=== PATIENT | male | born 1945 | race Caucasian/White ===

== ENCOUNTER 2019-12-09 10:40 | Emergency (ER) | payer MEDICARE, SELFPAY ==
[2019-12-09 10:52] VITALS: BP 171/76; PULSE 72; RESP 18; TEMP 36.5; O2SAT 97
--- NOTE | 2019-12-09 10:59 | ED.GENADULT ---
HPI - General Adult General Chief complaint: Chest Pain Stated complaint: Chest Pain Time Seen by Provider: 12/09/19 11:00 Source: patient and RN notes reviewed Mode of arrival: ambulatory Limitations: no limitations History of Present Illness HPI narrative: There is a 74 years old male presents to the office for an evaluation of right sided chest pain for a couple week. Pain is worse for the last couple days after he began coughing. Pain is also worse when he moved his right arm or exerted himself. He also reports feeling winded which prompted him to stay at home instead of going to gym. Pain last a few second. He took one dose cough/cold medicine for his cough. He does not smoke. Admits to history of LAD stent in 2003. He is diabetic. Related Data Home Medications Medication Instructions Recorded Confirmed atorvastatin 40 mg DAILY 12/09/19 12/09/19 glimepiride 4 mg BID 12/09/19 12/09/19 valsartan-hydrochlorothiazide 1 tablet DAILY 12/09/19 12/09/19 Allergies Allergy/AdvReac Type Severity Reaction Status Date / Time No Known Allergies Allergy Verified 12/09/19 10:47 Review of Systems Review of Systems: Narrative: CONSTITUTIONAL: Denies fever. Reports chills and sweat last night ENT: Denies congestion/sore throat CARDIOVASCULAR: Denies palpitation, edema. RESPIRATORY: Reports cough with shortness of breathe at times GASTROINTESTINAL: Denies abdominal pain, nausea, vomiting, diarrhea. SKIN: Denies rash MUSCULOSKELETAL: Denies acute back pain NEUROLOGIC: Denies lightheaded PMFSH Past Medical History Medical History (Updated 12/09/19 @ 11:23 by SETH Hall) Diabetes mellitus, type II HLD (hyperlipidemia) HTN (hypertension) Surgical History Surgical History (Updated 12/09/19 @ 10:59 by SETH Hall) H/O heart artery stent Social History Social History Alcohol intake: current Gender identity (if verbalized by the patient): Male Comments At time of signature, I agree with nursing past medical, surgical, social and family history. There is no relevant family history pertinent to the presenting complaint. Exam Narrative: Exam Narrative: GENERAL: This is a well-nourished, well-developed patient, in no apparent distress. EYES: Sclera clear/white. Vision is grossly intact. EARS: External ears normal, auditory canals clear and without drainage, TMs normal without perforation. Hearing grossly intact. NOSE: External nose normal with no obvious nasal discharge, nares without redness, no rhinorrhea. THROAT: Mucous membranes moist, posterior pharynx clear. NECK: Neck supple, non-tender without lymphadenopathy, masses or thyromegaly. CARDIOVASCULAR: Regular rate and rhythm without murmurs, gallops, or rubs. RESPIRATORY: Clear to auscultation. Breath sounds equal bilaterally. No wheezes, rales, or rhonchi. GASTROINTESTINAL: obese, abdomen soft, non-tender, nondistended. Bowel sounds are active. No hepato-splenomegaly, or palpable masses. No guarding. SKIN: warm, intact with no suspicious lesions or rash, good texture and turgor. NEURO: awake, alert, and oriented to person, place and time. There were no obvious focal neurologic abnormalities. Steady gait EXTREMITIES: Normal range of motion. No edema. Mikie Coma Scale Eye Opening: Spontaneous 4 Mikie Coma Scale Motor: Obeys Commands 6 Mikie Coma Scale Verbal: Oriented 5 Course Vital Signs Vital signs: Vital Signs Temperature 97.7 F 12/09/19 10:52 Pulse Rate 72 12/09/19 10:52 Respiratory Rate 18 12/09/19 10:52 Blood Pressure 171/76 H 12/09/19 10:52 Pulse Oximetry 97 12/09/19 10:52 Temperature 97.7 F 12/09/19 10:52 Pulse Rate 72 12/09/19 10:52 Respiratory Rate 18 12/09/19 10:52 Blood Pressure 171/76 H 12/09/19 10:52 Pulse Oximetry 97 12/09/19 10:52 Transfer Transfered to: [facility] Transportation: Other (private car) Transfer rationale
--- NOTE | 2019-12-09 11:03 | ECG_ITS ---
Measurements Intervals [place] Rate: 67 P: 52 FL: 198 QRS: -23 QRSD: 122 T: 82 QT: 411 QTc: 434 Interpretive Statements SINUS RHYTHM INFERIOR INFARCT, AGE INDETERMINATE BORDERLINE T WAVE ABNORMALITY- LATERAL LEADS ABNORMAL ECG Electronically Signed On 12-09-2019 13:01:59 COMMUNITY LIAISON OFFICER by Juan Daniel D.O.
== END 2019-12-09 11:30 | disposition short-term general hospital (02) ==
PROVIDERS: Emergency Provider Nurse Practitioner
DX: R07.89 Other chest pain (principal); I25.10 Atherosclerotic heart disease of native coronary artery without angina pectoris; Z95.5 Presence of coronary angioplasty implant and graft; E11.9 Type 2 diabetes mellitus without complications; E78.5 Hyperlipidemia, unspecified; I10 Essential (primary) hypertension
CPT/HCPCS: 93005; 99213; G0463

== ENCOUNTER 2019-12-09 11:47 | Observation (INO) | payer MEDICARE, SELFPAY ==
--- NOTE | ~2019-12-09 | XR_ITS ---
EXAMINATION: XR chest 2V DATE: 12/09/2019 12:21 INDICATION: Right chest pain. TECHNIQUE: Frontal and lateral views of the chest were obtained. COMPARISON: Chest 2 views 04/01/2010 FINDINGS: There is mild atelectasis in the lower lung zones. No pleural effusion or pneumothorax. The heart size is normal. There are prominent paracardial fat pads. IMPRESSION: 1. Mild atelectasis in the lower lung zones. Reviewed, dictated and finalized at location A. DOG VENDER
--- NOTE | 2019-12-09 11:57 | ECG_ITS ---
Measurements Intervals [place] Rate: 66 P: 54 MI: 195 QRS: -25 QRSD: 125 T: 66 QT: 400 QTc: 420 Interpretive Statements SINUS RHYTHM INTRAVENTRICULAR CONDUCTION DELAY INFERIOR INFARCT, AGE INDETERMINATE BORDERLINE T WAVE ABNORMALITY- LATERAL LEADS ABNORMAL ECG Electronically Signed On 12-09-2019 13:56:52 COUNTER CONTROL OPERATOR by Juan Daniel D.O.
--- NOTE | 2019-12-09 11:57 | ED.CHESTPAIN ---
HPI - Chest Pain General Chief Complaint: Chest Pain Stated Complaint: CP Time Seen by Provider: 12/09/19 11:52 Source: patient and RN notes reviewed Mode of arrival: ambulatory Limitations: no limitations History of Present Illness HPI narrative: Pt is a 74 y/o male who presents to the ED with c/o intermittent rt sided chest pain starting roughly 2 weeks ago. According to the nurse, the pt recently began working out several months ago. He denies any recent falls or injuries. Pt notes that his pain is aggravated with movement of his torso, and states that his pain is alleviated with rest. He notes that his pain is currently resolved while laying in the ED bed. Pt denies any fever, chills, or other symptoms. . Patient states he has a history of cardiac stent. States has not seen a house player in several years since his house player who was in [place] . complaint: chest pain Onset (ago): week(s) (2) Timing of current episode: episodic Pain location: right chest Relieving factors: rest Exacerbating factors: movement Associated symptoms: other (none) Related Data Home Medications Medication Instructions Recorded Confirmed atorvastatin 40 mg DAILY 12/09/19 12/09/19 glimepiride 4 mg BID 12/09/19 12/09/19 valsartan-hydrochlorothiazide 1 tablet DAILY 12/09/19 12/09/19 Allergies Allergy/AdvReac Type Severity Reaction Status Date / Time No Known Allergies Allergy Verified 12/09/19 10:47 Review of Systems Review of Systems: All systems reviewed & are unremarkable except as noted in HPI and below Constitutional: Constitutional: Denies chills and Denies fever(s) Cardiovascular: Cardiovascular: Reports chest pain (rt sided chest pain) [facility] Past Medical History Medical History (Updated 12/09/19 @ 13:36 by Zeus Brady DO) Diabetes mellitus, type II HLD (hyperlipidemia) HTN (hypertension) Sinusitis Surgical History Surgical History H/O heart artery stent Hx of cardiac catheterization Social History Social History Alcohol intake: current Gender identity (if verbalized by the patient): Male Exam Narrative: Exam Narrative: APPEARANCE: No acute distress, nontoxic, resting in bed EYES: EOMI HEENT: Normocephalic, atraumatic, OMM RESPIRATORY: No respiratory distress Clear to auscultation bilaterally with no rhonchi wheezing or rales. CARDIOVASCULAR: Regular rate and rhythm without murmurs rubs or gallops. ABDOMINAL: Soft, nontender, nondistended, no rebound or guarding MUSCULOSKELETAl: Moves all extremities. No clubbing, cyanosis or edema. NEURO: Awake and alert. Following commands, speech normal, no focal deficits SKIN:: Warm, dry. No rashes lesions or abrasions PSYCHIATRIC: Normal affect/mood, Course Course Emergency Course: Discussed with COLOR SHOP HELPER and Michael for Dr. Bellamy presentation work-up he agrees with admission of the chest pain center Discussed with patient and family results of workup and diagnosis. Discussed need for admission. Patient and family understand and agree to current treatment plan Vital Signs Vital signs: Vital Signs Temperature 98.1 F 12/09/19 12:22 Pulse Rate 70 12/09/19 12:22 Respiratory Rate 20 12/09/19 12:22 Blood Pressure 130/81 12/09/19 12:22 Pulse Oximetry 99 12/09/19 12:22 Temperature 98.1 F 12/09/19 12:22 Pulse Rate 70 12/09/19 12:22 Respiratory Rate 20 12/09/19 12:22 Blood Pressure 130/81 12/09/19 12:22 Pulse Oximetry 99 12/09/19 12:24 MDM - Chest Pain Lab Data Result diagrams: 12/09/19 12:07 12/09/19 12:07 Labs: Lab Results 12/09/19 12/09/19 12/09/19 Range/Units 12:07 12:07 12:07 WBC 7.2 (4.5-10.0) K/mm3 RBC 4.58 L (4.6-6.20) M/mm3 Hgb 14.2 (14.0-18.0) g/dL Hct 41.8 L (42.0-52.0) % MCV 91.3 (80-100) fl MCH 31.0 (26-34) pg MCHC 34.0 (32-36)
[2019-12-09 12:13] LABS: Basophils Absolute Auto 0.1 K/mm3 (0.0-0.1); Basophils Percent Auto 0.7 % (0.2-1.2); Eosinophils Absolute Auto 0.2 K/mm3 (0-0.3); Eosinophils Percent Auto 3.4 % (0-4.4); Hematocrit 41.8 % (42.0-52.0); Hemoglobin 14.2 g/dL (14.0-18.0); Immature Granulocyte Absolute 0.02 K/mm3 (0.00-0.031); Immature Granulocyte Percent A 0.3 % (0-0.5); Lymphocytes Absolute Auto 1.37 K/mm3 (0.9-3.2); Lymphocytes Percent Auto 19.1 % (18.3-44.2); Mean Corpuscular Volume 91.3 fl (80-100); Monocytes Percent Auto 13.4 % (2.6-8.5); Neutrophils Absolute Auto 4.5 K/mm3 (1.3-6.7); Neutrophils Percent Auto 63.1 % (45.5-73.1); Platelet Count Result 175 k/mm3 (150-375); Red Blood Count 4.58 M/mm3 (4.6-6.20); Red Cell Distribution Width 11.9 % (11.5-14.5); White Blood Count 7.2 K/mm3 (4.5-10.0)
[2019-12-09 12:22] VITALS: BP 130/81; PULSE 70; RESP 20; TEMP 36.7; O2SAT 99
[2019-12-09 12:24] VITALS: O2SAT 99
[2019-12-09 12:24] LABS: Lactic Acid Reflex 1.3 mmol/L (0.7-2.1)
[2019-12-09 12:25] LABS: INR 0.8; Prothrombin Time 11.2 Seconds (11.1-14.7)
[2019-12-09 12:26] LABS: Alanine Aminotransferase 20 U/L (4-50); Albumin Level 4.2 g/dL (3.5-5.1); Alkaline Phosphatase 60 U/L (38-126); Aspartate Amino Transferase 18 U/L (17-59); Bilirubin,Total 0.5 mg/dL (0.2-1.3); Blood Urea Nitrogen 18 mg/dL (9-20); Calcium 8.7 mg/dL (8.4-10.2); Carbon Dioxide 28 mmol/L (22-30); Chloride 99 mmol/L (98-107); Estimated CRCL calculation 76 ml/min; Estimated Glomerular Filt Rate > 60; Glucose 246 mg/dL (75-110); Potassium 3.7 mmol/L (3.4-5.0); Sodium 139 mmol/L (137-145)
[2019-12-09 12:37] LABS: Troponin I < 0.012 ng/mL (0.000-0.034)
[2019-12-09 13:37] VITALS: BP 185/79; PULSE 67; RESP 20; O2SAT 97
[2019-12-09 14:55] VITALS: BP 187/88; PULSE 66; RESP 16; O2SAT 95; BMI 33.9
--- NOTE | 2019-12-09 15:41 | PM.IMHP ---
H&P: HPI History of Present Illness Chief complaint: chest pain Narrative: date of service: 12/09/2019 Mr. Dong is a very pleasant 74-year-old man with a known history of coronary artery disease, previous PCI who was admitted to our service at the chest Pain Center from the emergency room a short time ago. The patient states that he was in his usual state of fairly good health when for the last week to 10 days he has been having episodes of right-sided chest discomfort that seems to come and go without physical exertion triggering it. He has noticed that twisting his torso from side to side will tend to trigger this pain. He also states that he felt a little bit feverish she was not really having a productive cough but he has had pneumonia in the past, he thought he probably had pneumonia and for that reason came to the emergency room to be evaluated. In the emergency room his cardiac evaluation consisted of an ECG that demonstrates sinus rhythm with no acute ST segment abnormalities. He does have inferior Q-waves suggestive of previous infarction of that segment. His troponin levels in the emergency room were normal. He was admitted to our service as a chest Pain Center patient. The patient has a known history of coronary artery disease stating that in the remote past he was seen by a corporate physical security supervisor in [facility] initially at in [place] where he underwent angiography and stenting of his LAD. He states that about a year after his PCI he was brought back to the slab tripper to reinvestigate the coronary stent was treated with a drug-eluting stent to the same segment as there was some loss of lumen and the initial stent was a bare metal device. Since that procedure he has had no other coronary interventions or hospitalizations. He does not notice any chest pain shortness of breath with it aerobic activity such as walking distances or climbing stairs. He sees Dr. Eric Oquendo at [place] for his primary care needs. His previous corporate physical security supervisor in [facility] has . He has not seen a corporate physical security supervisor since then which is something like 5or 6 years ago. He otherwise denies any symptoms in the way of a cardiac nature he specifically denies any orthopnea PND lower extremity edema palpitations or syncope. His principal health problems include hypertension dyslipidemia and non insulin-dependent diabetes. He states his diabetes is not well controlled because he is not compliant with his diet and or medications. 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 Review of Systems Constitutional: Constitutional: Reports no additional constitutional complaints Eyes: Eyes: Reports no additional eye complaints ENT: Reports system reviewed and no additional complaints, except as documented Cardiovascular: Cardiovascular: Reports as per HPI Comments: patient has exertional lower extremity calf discomfort typical of intermittent claudication which is chronic Respiratory: Respiratory: Reports no additional respiratory complaints Gastrointestinal: Gastrointestinal: Reports no additional gastrointestinal complaints Musculoskeletal: Musculoskeletal: Reports no additional musculoskeletal complaints and Reports as per HPI [facility] Past Medical History Medical History (Updated 12/09/19 @ 13:36 by Zeus Brady DO) Diabetes mellitus, type II HLD (hyperlipidemia) HTN (hypertension) Sinusitis Surgical History Surgical History H/O heart artery stent Hx of cardiac catheterization Social History Social History Smoking status: Never smoker Alcohol intake: current Gender identity (if verbalized by the patient): Male Meds Home Medications and Allergies Home Medications Medication Instructions Recorded Confirmed Type amlodipine 10 mg PO DAILY 12/09/19 12/09/19 History aspirin 81 mg PO DAILY 12/09/19 12/09/19
[2019-12-09 15:43] LABS: Cholesterol 120 mg/dL (0-200); HDL Direct 31 mg/dL; Triglycerides 176 mg/dL (<150)
[2019-12-09 15:54] LABS: LDL Cholesterol Direct 71 mg/dL
[2019-12-09 15:55] LABS: Troponin I 0.012 ng/mL (0.000-0.034)
--- NOTE | 2019-12-09 16:10 | ECG_ITS ---
Measurements Intervals [place] Rate: 71 P: 51 SC: 206 QRS: -28 QRSD: 114 T: 34 QT: 402 QTc: 437 Interpretive Statements SINUS RHYTHM INFERIOR INFARCT, AGE INDETERMINATE BORDERLINE T WAVE ABNORMALITY- LATERAL LEADS BASELINE WANDER- V6 ABNORMAL ECG Electronically Signed On 12-09-2019 15:44:47 THROAT CUTTER by Juan Daniel D.O.
[2019-12-09 18:48] LABS: Troponin I 0.016 ng/mL (0.000-0.034)
--- NOTE | 2019-12-09 19:26 | PC.NURSE ---
12/09/19:1900:PATIENT DRESSED SELF WITHOUT ASSISTANCE.
--- NOTE | 2019-12-09 19:27 | PC.NURSE ---
12/09/19:1907:PATIENT GIVEN DETAILED DISCHARGE INSTRUCTIONS. PATIENT VERBALIZED AN UNDERSTANDING OF THESE INSTRUCTIONS.
--- NOTE | 2019-12-09 19:32 | PC.NURSE ---
12/09/19:1910:PATIENT DISCHARGED TO HOME. PATIENT AMBULATED WITH NO DISTRESS. DISCHARGE PAPERS WITH PATIENT.
--- NOTE | 2019-12-19 06:41 | P.DS_ITS ---
DS: Diagnosis Admitting Diagnosis Admitting Diagnosis: Chest pain, unspecified DS: Summary Hospital Course Reason for hospitalization: Chest pain Hospital Course: This 74-year-old patient with a history of coronary artery disease who receives his care elsewhere. He has a history of previous PCI to the LAD. He presented to the emergency room with a 10 day history of intermittent chest pain felt to be very atypical of myocardial ischemia. Patient's electrocardiogram was benign. His biomarkers in the chest Pain Center were negative x3 sets. Patient was allowed to be discharged after rule out of acute coronary syndrome and follow-up was recommended with his PCP who is in [place] at [facility]. Status at Discharge Functional status at discharge: independent ambulation Overall status at discharge: patient is back to baseline Time Spent with Patient Time attestation: Total time spent providing and/or coordinating discharge services: Time spent: Less than 30 minutes Exam Const: General: comfortable and no acute distress HENMT: Mouth: Yes moist mucous membranes Eyes: Sclera: sclerae normal Pupils: Equal, round and reactive pupils present Neck: Neck: supple and no JVD Thyroid: thyroid normal Resp: Effort & Inspection: normal respiratory effort Auscultation: clear to auscultation bilaterally Cardio: Rate: regular rate Rhythm: regular rhythm Other: No murmur no gallop no rub GI: GI Palp: Yes Soft to palpation Auscultation: normal bowel sounds Skin: General skin exam: normal color Extrem: General: normal to inspection Discharge Plan Discharge Consulting providers: Juan Daniel ; Nilay Clayton V. Discharging Clinician: David Bellamy Anticipated Discharge Date/Time: 12/09/19 18:57 Patient Disposition: Home, Self-Care Activity: as tolerated Diet: heart healthy Discharge Instructions: Follow up with Dr. Oquendo. Patient Instructions: Chest Pain (DC) Stand Alone Forms: General Discharge Information Follow-up/Referrals: Azra,Eric Cronin MD [Primary Care Provider] - Discharge Medications: Continued atorvastatin 40 mg tablet 40 mg HS RF: 0 glimepiride 4 mg tablet 4 mg BID RF: 0 valsartan-hydrochlorothiazide 320-12.5 mg tablet 1 tablet DAILY RF: 0 amlodipine 10 mg Tablet 10 mg PO DAILY RF: 0 metformin 1,000 mg Tablet 1,000 mg PO BID RF: 0 aspirin 81 mg Tablet,Chewable 81 mg PO DAILY RF: 0 Lantus Solostar U-100 Insulin 100 unit/mL (3 mL) Insulin Pen 40 unit SUBCUT DAILY RF: 0 Victoza 3-Damon 0.6 mg/0.1 mL (18 mg/3 mL) Pen Injector 1.8 mg SUBCUT DAILY RF: 0 Invokana 100 mg Tablet 100 mg PO DAILY RF: 0 Date of admission: 12/09/19 13:10 Primary Care Provider: AzraEric Admitting Provider: David Bellamy Discharge Date/Time: 12/09/19 19:10 Attending physician on admission: David Bellamy Condition: Stable Quality If No VTE Prophylaxis Answer both mechanical and pharmacologic: Reason no mechanical VTE proph: low risk/not indicated
== END 2019-12-09 19:10 | disposition home or self-care (01) ==
LOC: ANHED 13:36 → ANHCPC 13:51
PROVIDERS: Admitting Provider Specialist; Emergency Provider Emergency Medicine; PCP Internal Medicine; Visit Provider Specialist
DX: R07.9 Chest pain, unspecified (principal); I25.10 Atherosclerotic heart disease of native coronary artery without angina pectoris; I10 Essential (primary) hypertension; E11.9 Type 2 diabetes mellitus without complications; E78.5 Hyperlipidemia, unspecified; Z91.11 Patient's noncompliance with dietary regimen; Z91.14 Patient's other noncompliance with medication regimen; Z79.4 Long term (current) use of insulin; Z79.82 Long term (current) use of aspirin; Z95.5 Presence of coronary angioplasty implant and graft
CPT/HCPCS: 36415; 71046; 80053; 80061; 83605; 84484; 85025; 85610; 85730; 93005; 99285; G0378

== ENCOUNTER 2021-06-13 11:10 | Emergency (ER) | payer MEDICARE, SELFPAY ==
[2021-06-13 11:18] VITALS: BP 183/94; PULSE 83; RESP 20; TEMP 36.7; O2SAT 97
--- NOTE | 2021-06-13 12:26 | ED.LOWEXIN ---
HPI - Extremity Injury (Lower) General Chief Complaint: Extremity Injury, Lower Stated Complaint: left leg Time Seen by Provider: 06/13/21 12:00 History of Present Illness HPI Narrative: Patient presents with wound on his left leg, Reports a history of diabetes. Reports he injured his leg approximately 1 month ago and still has not completely healed he also notes some spreading pain up his leg he was concerned so wanted to come in for evaluation. Denies any fevers numbness tingling. Denies any nausea or vomiting Related Data Home Medications Medication Instructions Recorded Confirmed Invokana 100 mg PO DAILY 12/09/19 12/09/19 Lantus Solostar U-100 Insulin 40 unit SUBCUT DAILY 12/09/19 12/09/19 Victoza 3-Damon 1.8 mg SUBCUT DAILY 12/09/19 12/09/19 amlodipine 10 mg PO DAILY 12/09/19 12/09/19 aspirin 81 mg PO DAILY 12/09/19 12/09/19 atorvastatin 40 mg HS 12/09/19 12/09/19 glimepiride 4 mg BID 12/09/19 12/09/19 metformin 1,000 mg PO BID 12/09/19 12/09/19 valsartan-hydrochlorothiazide 1 tablet DAILY 12/09/19 12/09/19 Allergies Allergy/AdvReac Type Severity Reaction Status Date / Time No Known Allergies Allergy Verified 06/13/21 11:21 Review of Systems Review of Systems: CONSTITUTIONAL: Denies fever, chills, or sweats. EYES: Denies visual changes, redness, or discharge. ENT: Denies rhinorrhea, congestion, sore throat, or otalgia. CARDIOVASCULAR: Denies chest pain, palpitations, or edema. RESPIRATORY: Denies cough or dyspnea. GASTROINTESTINAL: Denies abdominal pain, nausea, vomiting, or diarrhea. SKIN: Denies rash or itching. MUSCULOSKELETAL: Denies back pain, joint pain, or myalgia. NEUROLOGIC: Denies headache, numbness, dizziness, or weakness. PSYCHIATRIC: Denies anxiety or depression. [facility] Past Medical History Medical History Diabetes mellitus, type II HLD (hyperlipidemia) HTN (hypertension) Sinusitis Surgical History Surgical History H/O heart artery stent Hx of cardiac catheterization Social History Social History Smoking status: Never smoker Alcohol intake: current Gender identity (if verbalized by the patient): Male Exam Narrative: GENERAL: Well-appearing, well-nourished, and in no acute distress. HEAD: Normocephalic, atraumatic. EYES: PERRLA and EOMI. ENT: Nares clear, no rhinorrhea or epistaxis. Mucous membranes moist. NECK: Supple. No masses. No JVD EXTREMITIES: Normal range of motion. No edema. SKIN: Warm, dry, no rash. 1 x 1 cm superficial wound to the lateral distal aspect of the left lower leg. Minimal surrounding erythema mild tenderness palpation no focal fluctuance no purulent material drainage NEURO: No focal deficits. Alert and oriented x3. PSYCH: Normal mood and affect. Course Vital Signs Vital signs: Vital Signs Temperature 36.7 C 06/13/21 11:18 Pulse Rate 83 06/13/21 11:18 Respiratory Rate 20 06/13/21 11:18 Blood Pressure 183/94 H 06/13/21 11:18 Pulse Oximetry 97 06/13/21 11:18 Temperature 36.7 C 06/13/21 11:18 Pulse Rate 80 06/13/21 12:42 Respiratory Rate 20 06/13/21 12:42 Blood Pressure 175/88 H 06/13/21 12:42 Pulse Oximetry 99 06/13/21 12:42 MDM - Extremity Injury (Lower) MDM Narrative Medical decision making narrative: H&P as above, vss, pt looks clinically well, exam with superficial wound, additional labs/img considered, symptomatic relief available as needed, on reevaluation pt continues to looks clinically well. Suspect poor wound healing due to history of diabetes, given tenderness around the wound site history of diabetes will cover with antibiotics. Low concern for abscess, severe sepsis, severe dehydration. plan to tx/monitor as op w/ pcm f/u findings/plan discussed with pt, pt agree/comfortable with plan, return precautions given Discharge Plan Discharge
[2021-06-13 12:42] VITALS: BP 175/88; PULSE 80; RESP 20; O2SAT 99
== END 2021-06-13 12:44 | disposition home or self-care (01) ==
PROVIDERS: Emergency Provider Emergency Medicine; PCP Internal Medicine
DX: E11.622 Type 2 diabetes mellitus with other skin ulcer (principal); L98.499 Non-pressure chronic ulcer of skin of other sites with unspecified severity; I10 Essential (primary) hypertension; E78.5 Hyperlipidemia, unspecified; Z79.82 Long term (current) use of aspirin; Z79.84 Long term (current) use of oral hypoglycemic drugs
CPT/HCPCS: 99283

== ENCOUNTER 2021-12-03 12:24 | Inpatient (IN) | payer MEDICARE, SELFPAY ==
[2021-12-03] VITALS (15 sets, daily range): BP systolic 103–190; BP diastolic 43–107; PULSE 76–99; RESP 17–27; TEMP 36.2–36.5; O2SAT 96–100; BMI 33.7
--- NOTE | 2021-12-03 | ECHO_ITS ---
Patient Info Name: Law Dong Age: 76 years : 1945 Gender: Male Ht: 71 in Wt: 240 lbs BSA: 2.37 m2 Heart Rhythm: Sinus Arrhythmia Technical Quality: Fair Exam Date: 12/03/2021 4:50 PM Exam Location: [facility] Patient Status: Inpatient Admit Date: 12/03/2021 Staff Ordering Physician: David Bellamy MD Cd Manufacturing Supervisor: Kathya Iqbal RDCS Attending Provider: Nik Arguello MD Referring Physician: Josesito RINCON; Exam Type: CA echo dop color flow w con Study Info Indications - acute coronary syndrome/non ST-elevation PA Complete two-dimensional, color flow and Doppler transthoracic echocardiogram is performed. Summary 1. Complete two-dimensional, color flow and Doppler transthoracic echocardiogram is performed. 2. Suboptimal image quality, definity echo contrast was used. Normal LV size and wall thickness, mild LV systolic dysfunction with segmental wall motion abnormality. Ejection fraction 45-50%. Severely hypokinetic to akinetic apical and apical inferior segments. Diastolic dysfunction is present with elevated left atrial pressures. Mild left atrial enlargement. Mitral valve leaflets are mildly thickened with mild mitral annular calcification, no significant MR. Aortic valve is not well visualized, appears moderately calcified. [id number] aortic stenosis with a valve area of 1.5 cm2; maximum velocity 2.17 m/sec, mean gradient 9 mmHg. Unable to assess RVSP due to inadequate TR jet. Left Ventricle Left ventricular systolic function is mildly reduced, estimated at 45-50%. The left ventricular diastolic function is abnormal. E/e' 27.89 is abnormal. Right Ventricle Right ventricular chamber dimension is normal. Right ventricular systolic function is normal. Right Atria Right atrial chamber dimension is normal. Aortic Valve The aortic valve is not well visualized. There is mild to moderate aortic valve stenosis with a peak velocity of 217.28 cm/s, mean gradient of 9 mmHg, and aortic valve area of 1.51 cm2. Pulmonic Valve The pulmonic valve is not well visualized. Mitral Valve The mitral valve has thickened leaflets. There is mild mitral valve calcification. Tricuspid Valve The tricuspid valve leaflets are not well visualized. Pericardium/Pleural The pericardium appears epicardial fat pad. Aorta The aortic root size at the sinus of Valsalva is not well visualized. Left Ventricular Outflow Tract Name Value Normal LVOT 2D LVOT Diameter 2.14 cm LVOT Doppler LVOT Peak Gradient 6 mmHg LVOT Mean Gradient 2 mmHg LVOT VTI 16.62 cm LVOT VTI/AV VTI Ratio 0.42 LVOT Stroke Volume 59.93 ml LVOT CO 4.79 l/min LVOT CI 2.02 L/min/m2 Pulmonic Valve Name Value Normal RVOT Doppler
--- NOTE | ~2021-12-03 | XR_ITS ---
EXAMINATION: XR chest 2V DATE: 12/03/2021 13:05 INDICATION: Chest pain. TECHNIQUE: Frontal and lateral views of the chest were obtained. COMPARISON: Chest 2 views 12/09/2019 FINDINGS: There is mild atelectasis in the lower lung zones. No pleural effusion or pneumothorax. The heart size is normal. IMPRESSION: 1. Mild atelectasis in the lower lung zones. Reviewed, dictated and finalized at location E. ETING COORDINATOR
--- NOTE | 2021-12-03 12:38 | ECG_ITS ---
Measurements Intervals [place] Rate: 104 P: 79 GA: 200 QRS: -57 QRSD: 125 T: 84 QT: 352 QTc: 464 Interpretive Statements SINUS TACHYCARDIA LEFT AXIS DEVIATION BORDERLINE AV CONDUCTION DELAY INCOMPLETE RIGHT BUNDLE BRANCH BLOCK POOR R WAVE PROGRESSION, ANTERIOR LEADS INFERIOR INFARCT, AGE INDETERMINATE ST-T WAVE ABNORMALITY IN HIGH LATERAL LEADS- CONSIDER ISCHEMIA ABNORMAL ECG Electronically Signed On 12-03-2021 12:56:46 ANALYST MARKET INTELLIGENCE by Juan Daniel D.O.
--- NOTE | 2021-12-03 12:52 | ED.CHESTPAIN ---
HPI - Chest Pain General Chief Complaint: Chest Pain Stated Complaint: chest pain Time Seen by Provider: 12/03/21 12:27 Source: patient Mode of arrival: ambulatory Limitations: no limitations History of Present Illness HPI narrative: Patient is a 76-year-old male complain of chest pain, midsternal, described as pressure, radiating to jaw, 5 out of 10, intermittent started approximately 1 week ago. Patient denies any shortness of breath, abdominal pain, nausea, vomiting, diaphoresis, fever or chills. Patient has a history of coronary artery disease with stent placement in the past. Related Data Home Medications Medication Instructions Recorded Confirmed Invokana 100 mg PO DAILY 12/09/19 12/09/19 Lantus Solostar U-100 Insulin 40 unit SUBCUT DAILY 12/09/19 12/09/19 Victoza 3-Damon 1.8 mg SUBCUT DAILY 12/09/19 12/09/19 amlodipine 10 mg PO DAILY 12/09/19 12/09/19 aspirin 81 mg PO DAILY 12/09/19 12/09/19 atorvastatin 40 mg HS 12/09/19 12/09/19 glimepiride 4 mg BID 12/09/19 12/09/19 metformin 1,000 mg PO BID 12/09/19 12/09/19 valsartan-hydrochlorothiazide 1 tablet DAILY 12/09/19 12/09/19 Allergies Allergy/AdvReac Type Severity Reaction Status Date / Time No Known Allergies Allergy Verified 06/13/21 11:21 Review of Systems Review of Systems: All systems reviewed & are unremarkable except as noted in HPI and below Constitutional: Constitutional: Denies body ache(s), Denies chills, Denies excessive sweating, Denies fatigue, Denies fever(s), Denies headache(s), Denies lethargy, Denies malaise, Denies weakness and Denies weight loss Eyes: Eyes: Denies blurry vision, Denies change in vision and Denies loss of vision ENT: Denies dizziness, Denies ear discharge, Denies headache(s), Denies lip swelling, Denies epistaxis, Denies nasal congestion, Denies neck pain, Denies throat swelling and Denies tongue swelling Cardiovascular: Cardiovascular: Denies diaphoresis, Denies rapid heart rate, Denies edema, Denies irregular heart rhythm, Denies lightheadedness, Denies palpitations, Denies dyspnea and Denies dyspnea on exertion Respiratory: Respiratory: Denies chest congestion, Denies cough, Denies hemoptysis, Denies dyspnea and Denies dyspnea on exertion Gastrointestinal: Gastrointestinal: Denies abdominal pain, Denies melena, Denies hematochezia, Denies diarrhea, Denies nausea, Denies vomiting and Denies hematemesis Musculoskeletal: Musculoskeletal: Denies abnormal gait, Denies deformity, Denies joint swelling, Denies limited range of motion, Denies neck pain and Denies numbness Neurologic: Denies Abnormal speech present, Denies abnormal gait, Denies confusion, Denies dizziness, Denies headache(s), Denies focal weakness, Denies loss of vision, Denies numbness, Denies Other visual disturbances, Denies Sensory deficit (Neuro) and Denies weakness Psychiatric: Psychiatric: Denies confusion, Denies depression, Denies auditory hallucinations, Denies homicidal ideation and Denies suicidal ideation Endocrine: Endocrine: Denies cold intolerance, Denies excessive sweating, Denies fatigue, Denies heat intolerance and Denies palpitations Hematologic/Lymphatic: Hematologic/Lymphatic: Denies easy bleeding and Denies easy bruising Allergic/Immunologic: Allergic/Immunologic: Denies lip swelling, Denies throat swelling and Denies tongue swelling PMFSH Past Medical History Medical History Diabetes mellitus, type II HLD (hyperlipidemia) HTN (hypertension) Sinusitis Surgical History Surgical History H/O heart artery stent Hx of cardiac catheterization Social History Social History Smoking status: Never smoker Alcohol intake: current Gender identity (if verbalized by the patient): Male Exam Const: General: cooperative, healthy appearing, comfortable, no acute distress, well devel
[2021-12-03 13:05] LABS: Basophils Absolute Auto 0.1 K/mm3 (0.0-0.1); Basophils Percent Auto 0.6 % (0.2-1.2); Eosinophils Absolute Auto 0.1 K/mm3 (0-0.3); Eosinophils Percent Auto 0.9 % (0-4.4); Hematocrit 36.2 % (42.0-52.0); Immature Granulocyte Absolute 0.04 K/mm3 (0.00-0.031); Immature Granulocyte Percent A 0.4 % (0-0.5); Lymphocytes Absolute Auto 1.41 K/mm3 (0.9-3.2); Lymphocytes Percent Auto 14.2 % (18.3-44.2); Mean Corpuscular HGB Conc 33.1 g/dl (32-36); Mean Corpuscular Hemoglobin 32.6 pg (26-34); Mean Corpuscular Volume 98.4 fl (80-100); Mean Platelet Volume 10.1 fl (7.4-10.4); Monocytes Absolute Auto 0.6 K/mm3 (0.1-0.6); Monocytes Percent Auto 6.3 % (2.6-8.5); Neutrophils Absolute Auto 7.7 K/mm3 (1.3-6.7); Neutrophils Percent Auto 77.6 % (45.5-73.1); Platelet Count Result 211 k/mm3 (150-375); Red Blood Count 3.68 M/mm3 (4.6-6.20); Red Cell Distribution Width 14.6 % (11.5-14.5); White Blood Count 9.9 K/mm3 (4.5-10.0)
[2021-12-03 13:17] LABS: INR 0.9; Partial Thromboplastin Time 23.6 SECONDS (22.3-36.8); Prothrombin Time 12.2 Seconds (11.1-14.7)
[2021-12-03 13:45] LABS: Alanine Aminotransferase 28 U/L (4-50); Albumin Level 4.1 g/dL (3.5-5.1); Alkaline Phosphatase 67 U/L (38-126); Anion Gap 9 mmol/L (8-16); Aspartate Amino Transferase 41 U/L (17-59); Bilirubin,Total 0.5 mg/dL (0.2-1.3); Blood Urea Nitrogen 23 mg/dL (9-20); Calcium 8.9 mg/dL (8.4-10.2); Carbon Dioxide 26 mmol/L (22-30); Chloride 101 mmol/L (98-107); Estimated CRCL calculation 45 ml/min; Estimated Glomerular Filt Rate 42; Glucose 136 mg/dL (65-110); Lipase 235 U/L (23-300); Potassium 4.1 mmol/L (3.4-5.0); Sodium 136 mmol/L (137-145)
[2021-12-03] MEDS: ASPIRIN 81 MG CHEWABLE TABLET 324 MG PO (14:05)
[2021-12-03] MEDS: HEPARIN SODIUM 5,000 UNITS/ML VIAL 4000 UNITS IV PUSH ×2 (14:27→23:51)
[2021-12-03] MEDS: HEPARIN SOD/D5W 100 UNITS/ML 25,000 UNITS/250 ML BAG 10 UNITS IV CONT ×2 (14:33→17:05)
--- NOTE | 2021-12-03 14:39 | PC.NURSE ---
Dr Bellamy at bedside to jordan
--- NOTE | 2021-12-03 14:53 | PM.CNCAR ---
Assessment and Plan Additional Plan this is a 76-year-old man known to have coronary disease. Previous PCI to his LAD on 2 occasions many years ago. He describes a bare metal stent followed by a drug-eluting stent. He has clinically been doing well and is followed elsewhere. He now presents with both exertional and postprandial chest pain for about a week to 10 days. Appears to be fairly comfortable at this time hip. His ECG however does demonstrate some widening of the QRS and some subtle ST-T changes in the precordial leads compared to previous tracings. More concerningly is his troponin level is 3.9. The diagnosis obviously is non ST segment elevation [place]/ACS. He will be brought at this time for angiography and further recommendations will be pending that exam. David Bellamy MD [facility] History of Present Illness History of Present Illness Consult date/time: 12/03/21 14:53 Consult reason: chest pain Reason For Visit: chest pain Narrative: this is a 76-year-old man I am seeing in the emergency room at the request of the ED staff because of chest pain and troponin levels that are compatible with non ST elevation [place]. the patient is known to have coronary artery disease and follows with physicians in [place]. I saw this patient 2020 when he was here with a history of atypical chest pain but otherwise have not followed him. He has a history of coronary artery disease dating back for many years when a physician in [facility] at [facility] in [place] performed LAD stent procedure. He states that within the year after that he had recurrent stenosis in the stented area and then had it treated again with a drug-eluting stent and since then has been doing well. In recent years he has been following with physicians at [place]. His primary care physician is Eric Oquendo. Patient states that he became symptomatic again about a week to 10 days ago with symptoms of pressure-like chest discomfort when he exerts himself but also after meals. He describes pain that starts in the center of the chest radiates into the jaw and then down the arms bilaterally. He apparently was dealing with this on his own but called his physician today that somewhat in that office told him to come to the emergency department. Because he lives in the vicinity of this hospital he came here rather than going to [place] where his physician works. He looks to be comfortable at this time in the emergency room but I was asked to see him because of these symptoms and his troponin level on presentation is 3.9. After that he was given a bolus and an infusion of heparin. He appears to be comfortable at the time of this consultation. Review of Systems Constitutional: Constitutional: Reports no additional constitutional complaints Eyes: Eyes: Reports no additional eye complaints ENT: Reports system reviewed and no additional complaints, except as documented Cardiovascular: Cardiovascular: Reports as per HPI Respiratory: Respiratory: Reports no additional respiratory complaints Gastrointestinal: Gastrointestinal: Reports no additional gastrointestinal complaints Musculoskeletal: Musculoskeletal: Reports no additional musculoskeletal complaints Integumentary/Breasts: Skin/Breast: Reports system reviewed and no additional complaints, except as docu Neurologic: Reports system reviewed and no additional complaints, except as documented Endocrine: Endocrine: Reports no additional endocrine complaints Hematologic/Lymphatic: Hematologic/Lymphatic: Reports no additional hematologic/lymphatic complaints Allergic/Immunologic: Allergic/Immunologic: Reports no additional allergic/immunologic complaints PMFSH Past Medical History Medical History Diabetes mellitus, type II HLD (hyperlipidemia) HTN (hypertension) Sinusitis Surgical History Surgical History (Reviewed 12/03/21 @ 12:53 by Glenna Pittman
--- NOTE | 2021-12-03 15:05 | PC.NURSE ---
greenhouse laborer RN at bedside to take pt to [facility].
[2021-12-03 15:39] LABS: SARS-CoV-2 RNA PCR Negative
--- NOTE | 2021-12-03 16:21 | WPDCARDPROC ---
Cardiac Cath Procedure Note Date of procedure:: 12/03/21 Performing physician:: David Bellamy MD Indication:: non ST-elevation [place] Brief clinical history:: this is a 76-year-old man with a history of coronary disease with previous stenting of the left anterior descending in the remote past. He received his care elsewhere. He was directed to the emergency room by his PCP because of a 7-10 day history of intermittent ischemic sounding chest pain. ECG in the emergency room showed some new precordial T-wave changes and troponin was 3.9. In this setting he is being brought urgently to the cardiac catheterization lab. He did receive heparin in the emergency room and is not having any significant chest pain upon arrival in the manager cardiac cath at this time. Procedure Procedure performed:: Emergency coronary angiography placement of intra-aortic balloon pump Sedation/Medication given:: fentanyl 50 mg Versed 2 mg Access site:: right femoral artery Estimated blood loss:: 50 cc Procedure note:: patient was brought to the cardiac catheterization lab in the emergent setting described above. The right femoral triangle was prepared and draped in the usual fashion. Anesthesia was provided with 1% lidocaine infiltrated locally. Using the modified Seldinger technique a 5 Ugandan vascular sheath was placed in the femoral artery after this I used a 5 Ugandan JR4 catheter to engage and inject the right coronary artery in multiple projections. This catheter was then withdrawn and a 5 Ugandan FL4 catheter was used to engage and inject the left coronary artery in multiple projections. Following this the cineangiograms were reviewed. At that time I elected to recommend placement of an intra-aortic balloon pump with systemic anticoagulation and attempt to transfer this patient for either CABG or high-risk PCI. The patient was clinically stable during the procedure. He is in the cardiac catheterization lab as I dictate this having no chest pain and is otherwise asymptomatic at this moment. Findings:: Hemodynamics: Central aortic pressure was variable during the case. The left main coronary artery is medium in caliber and is essentially patent. There is some haziness to the distal aspect of the left main but there is no significant stenosis identified. The left anterior descending is a medium caliber artery. There is visible stent material in the proximal LAD that is essentially patent. There is however a 99% ostial stenosis of the LAD. Distal to this the vessel has mild disease and BRO 2 flow down to the apex. This is clearly the culprit for the patient's presentation. The circumflex is a moderate caliber artery giving rise to the marginal branches. The does not have any high-grade lesions identified. The ostium of the circumflex in the YORUBA caudal projection appears to have about 50-60% ostial stenosis. Right coronary artery is large in caliber and dominant to the posterior circulation. The ostium of the right coronary artery has about 50-60% stenosis. The remainder of the right coronary is has mild luminal irregularities but no significant lesions. Conclusion:: 1. Coronary artery disease with critical subtotal stenosis of the LAD in the ostial segment. Stents distal to this remain patent. There is BRO 1 flow in the LAD because of the ostial subtotal stenosis. 2. Moderate stenosis at the ostium of the circumflex probably 50-60% as described above 3. mild 50-60% ostial right coronary stenosis does not appear to be flow-limiting at this time large dominant right coronary artery. 4. Left ventriculogram was not performed at this time as the patient does have a mild element of renal insufficiency and the desire to minimize contrast exposure. 5. Will attempt to transfer the patient to higher level of care /[facility] where either high-risk PCI versus CABG can be considered. David Bellamy MD [facility]
--- NOTE | 2021-12-03 16:43 | PC.NURSE ---
ARRIVES TO [facility] 7 S/P LHC W/ INSERTION OF IABP BY DR. DEL CASTILLO. AWAKE AND ALERT ON ARRIVAL. DENIES CP OR SOB. MONITOR SR. IABP IN 1:1 TIMING, EKG TRIGGER. R. GROIN SITE D/I, SOFT, NONTENDER. NO BLEEDING OR HEMATOMA NOTED. R. PEDAL PULSE PALP WEAK. REVIEWED BEDREST ACTIVITY RESTRICTIONS AND CURRENT ORDERS. ARRIVES WITH HEPARIN GTT OFF/PAUSED SINCE JUST PRE CASE. WILL CONTINUE TO MONITOR.
--- NOTE | 2021-12-03 17:00 | PM.TDS ---
Transfer Discharge Sum: Prov Provider Date of admission: 12/03/21 17:00 Primary care physician: Eric Oquendo, Admitting clinician: Gautam Arguello MD Consults: 12/03/21 14:52 Consult to Physician Routine Consulting Provider: David Bellamy Reason for consultation: NSTEMI DS: Admitting Diagnosis Discharge Date 12/03/2021 Admitting Diagnosis 1. Non ST segment elevation MD/ACS. 2. Hypertension. 3. Hyperlipidemia. 4. Insulin-dependent type 2 diabetes mellitus. 5. Renal insufficiency. 6. Normocytic anemia. 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 Status: Acute (5) Renal insufficiency: Code(s): N28.9 - Disorder of kidney and ureter, unspecified Status: Acute (6) Normocytic anemia: Code(s): D64.9 - Anemia, unspecified Status: Acute Transfer Discharge Sum: Med Medications Active and Home Medications: Home Medications Lantus Solostar U-100 Insulin 40 unit SUBCUT DAILY 12/09/19 [History Confirmed 12/03/21] aspirin 81 mg PO DAILY 12/09/19 [History Confirmed 12/03/21] atorvastatin 40 mg PO HS 12/09/19 [History Confirmed 12/03/21] metformin 1,000 mg PO BID 12/09/19 [History Confirmed 12/03/21] valsartan-hydrochlorothiazide 1 tablet PO DAILY 12/09/19 [History Confirmed 12/03/21] folic acid 1 mg PO DAILY 12/03/21 [History Confirmed 12/03/21] hydroxychloroquine 200 mg PO BID 12/03/21 [History Confirmed 12/03/21] insulin lispro [Humalog Pen] 1 sliding scale dose SUBCUT USEASDIRECTD 12/03/21 [History Confirmed 12/03/21] meloxicam 15 mg PO DAILY 12/03/21 [History Confirmed 12/03/21] Active Medications Heparin Sodium (Porcine) (Heparin Sodium 5,000 Units/Ml Vial) 4,000 units IV PUSH PRN PRN PRN Reason: aPTT less than 55 seconds Heparin Sodium (Porcine) (Heparin Sodium 5,000 Units/Ml Vial) 3,500 units IV PUSH PRN PRN PRN Reason: aPTT 55 - 70 seconds Heparin Sodium/Dextrose (Heparin Sodium/D5w 100 Units/Ml) 25,000 units in 250 mls @ 10 mls/hr IV CONT .Q24H BELA; Protocol Last Admin: 12/03/21 17:05 Dose: 1,000 units/hr, 10 mls/hr Documented by: Sodium Chloride (Normal Saline Iv) 1,000 mls @ 125 mls/hr IV CONT .Q8H ONE Stop: 12/04/21 01:50 Last Admin: 12/03/21 18:05 Dose: 125 mls/hr Documented by: Transfer Discharge Sum: Hosp Hospital Course Hospital course: This is a very pleasant 76-year-old male with known coronary artery disease status post stent to the LAD several years ago, hypertension, hyperlipidemia, and insulin-dependent type 2 diabetes mellitus who presented to the emergency department via private vehicle from home for evaluation of chest pain. Over the past 7 to 10 days he has had intermittent episodes of midsternal chest pressure and heaviness radiating to the jaw and down the arms. These episodes are self-limiting and last anywhere between 15 to 20 minutes before resolving. He sees no pattern as to when they occur although on several occasions they have occurred shortly after eating a meal. He has not necessarily noticed that they occur with exertion. After speaking with his physician today, he decided to come in for evaluation. Initial troponin was 3.[address] subtle [address]-T changes in the precordial leads compared to previous tracings. He was taken to the research laboratory specialist per Dr. Bellamy where he was found to have critical subtotal stenosis of the LAD in the ostial segment (stents distal to this remain patent), moderate stenosis at the ostium of the circumflex, and mild
--- NOTE | 2021-12-03 17:00 | PC.NURSE ---
DR. DEL CASTILLO HERE. UPDATED. ORDERS REQUESTED FOR POST PROCEDURE CARE. WILL RESUME HEPARIN GTT AT 1000 UNITS/HR AND GET PTT IN [address] DEL CASTILLO ORDER. SILVA URINE CATHETER 16F INITIATED BY JAQUELINE JUAREZ RN WITHOUT DIFFICULTY WITH RETURN OF CLEAR YELLOW URINE.
--- NOTE | 2021-12-03 17:45 | PC.NURSE ---
ECHO IN PROGRESS AT BEDSIDE. DR. DEL CASTILLO GIVEN PT'S , BRIS, PHONE NUMBER TO CALL TO UPDATE. TATIANNA Tineo RN STARTING 2ND IV SITE TO Casey NORMAN.
[2021-12-03] MEDS: PERFLUTREN LIPID MICROSPHERES 1.5 ML VIAL DILUTED TO 10 ML TOTAL VOLUME IV PUSH (17:51)
--- NOTE | 2021-12-03 17:51 | ECG_ITS ---
Measurements Intervals Lander Rate: 83 P: 65 MS: 228 QRS: -50 QRSD: 127 T: 109 QT: 359 QTc: 424 Interpretive Statements SINUS RHYTHM WITH FIRST DEGREE AV BLOCK VENTRICULAR PREMATURE COMPLEX INTRAVENTRICULAR CONDUCTION DELAY BORDERLINE R WAVE PROGRESSION, ANTERIOR LEADS BORDERLINE ST-T WAVE ABNORMALITY- HIGH LATERAL LEADS ABNORMAL ECG Electronically Signed On 12-04-2021 7:10:15 CHICKEN FANCIER by Juan Daniel D.O.
--- NOTE | 2021-12-03 17:51 | IVDEFINITY ---
Prior to administration of IV Definity the patient was educated on the risks and benefits of the imaging enhancing agent including potential adverse side effects. The patient verbalized understanding. Allergies were verified. No exclusion criteria were identified and at least one of the following inclusion criteria were met: 1) physician request, 2) patient technically difficult to image (per the [place] [employer] Echocardi[employer] guidelines of two or more segments not discernable within the apical view), or 3) questionable left ventricular function. ?
[2021-12-03] MEDS: SODIUM CHLORIDE 0.9% IV 1,000 ML 125 ML IV CONT (18:05)
[2021-12-03 18:50] LABS: Basophils Absolute Auto 0.1 K/mm3 (0.0-0.1); Basophils Percent Auto 0.5 % (0.2-1.2); Eosinophils Absolute Auto 0.1 K/mm3 (0-0.3); Eosinophils Percent Auto 1.4 % (0-4.4); Hematocrit 33.2 % (42.0-52.0); Immature Granulocyte Absolute 0.04 K/mm3 (0.00-0.031); Immature Granulocyte Percent A 0.4 % (0-0.5); Lymphocytes Absolute Auto 1.99 K/mm3 (0.9-3.2); Lymphocytes Percent Auto 20.2 % (18.3-44.2); Mean Corpuscular HGB Conc 33.1 g/dl (32-36); Mean Corpuscular Hemoglobin 32.7 pg (26-34); Mean Corpuscular Volume 98.8 fl (80-100); Monocytes Absolute Auto 0.6 K/mm3 (0.1-0.6); Monocytes Percent Auto 5.7 % (2.6-8.5); Neutrophils Absolute Auto 7.1 K/mm3 (1.3-6.7); Neutrophils Percent Auto 71.8 % (45.5-73.1); Platelet Count Result 177 k/mm3 (150-375); Red Blood Count 3.36 M/mm3 (4.6-6.20); Red Cell Distribution Width 14.6 % (11.5-14.5); White Blood Count 9.8 K/mm3 (4.5-10.0)
[2021-12-03 19:06] LABS: Glucose Point of Care 98 mg/dl (65-105)
--- NOTE | 2021-12-03 19:10 | PC.NURSE ---
REPORT GIVEN TO PAU Newton RN FROM ICU. PT. IS TO TRANSFER TO ICU BED 6 WHILE AWAITING PLANNED TRANSFER TO [facility]. NO NEW CHANGED IN PT. CONDITION OR IABP. VOICES NO C/O.
--- NOTE | 2021-12-03 20:20 | PC.NURSE ---
PT'S NOTIFIED OF MOVE TO ICU 6 FROM EXPEDITER 7 AND AWAIT TRANSFER TO [facility]. PT. MOVED VIA BED ON IABP TO ICU 6. TOLERATED WELL. NO NEW CHANGES.
--- NOTE | 2021-12-03 20:40 | ADMGEN ---
This patient, Law Dong, was admitted to Intensive Care Unit-6. Patient/family oriented to hospital policies and general routines including ID bracelet, bed and alarms, visiting hours, pain management, procedures, bathroom and other care routines, personal items, smoking policy, room service/diet, and visiting hours. Information on how to activate the Rapid Response Team has been discussed. Patient/Family are encouraged to report perceived risks to care and to ask questions if they do not understand what they are told or what they should do.
--- NOTE | 2021-12-03 20:58 | PC.NURSE ---
at 1925 lab called critical troponin slightly higher than previous at 4.280. this was upon working on transferring patient to ICU. Results given to oncoming SUB MASTERKEYA Pinto. [facility] was paged at [phone] and awaiting response.
--- NOTE | 2021-12-03 22:42 | PM.IMHP ---
H&P: HPI History of Present Illness Date/Time: 12/03/21 20:45 Chief Complaint: Chest pain. Narrative: This is a 76-year-old male with PMFSH Past Medical History Medical History Diabetes mellitus, type II HLD (hyperlipidemia) HTN (hypertension) Sinusitis Surgical History Surgical History H/O heart artery stent Hx of cardiac catheterization Family History Family History (Updated 12/03/21 @ 21:28 by Millie Arredondo RN) Father Heart attack Mother Congestive heart failure (CHF) Breast cancer Social History Social History Smoking status: Never smoker Smokeless tobacco user: chewing tobacco Alcohol intake: current Drinks per week: 2 Substance use: never Gender identity (if verbalized by the patient): Male Spiritual care concerns: No Meds Home Medications and Allergies Home Medications Medication Instructions Recorded Confirmed Type Lantus Solostar U-100 Insulin 40 unit SUBCUT DAILY 12/09/19 12/03/21 History aspirin 81 mg PO DAILY 12/09/19 12/03/21 History atorvastatin 40 mg PO HS 12/09/19 12/03/21 History metformin 1,000 mg PO BID 12/09/19 12/03/21 History valsartan-hydrochlorothiazide 1 tablet PO DAILY 12/09/19 12/03/21 History folic acid 1 mg PO DAILY 12/03/21 12/03/21 History hydroxychloroquine 200 mg PO BID 12/03/21 12/03/21 History insulin lispro [Humalog Pen] 1 sliding scale dose SUBCUT 12/03/21 12/03/21 History USEASDIRECTD meloxicam 15 mg PO DAILY 12/03/21 12/03/21 History Allergies Allergy/AdvReac Type Severity Reaction Status Date / Time No Known Allergies Allergy Verified 06/13/21 11:21 Vital Signs Vital Signs - 24 hr 12/03/21 12:32 12/03/21 12:38 12/03/21 14:09 Temperature Pulse Rate 98 99 Respiratory Rate 21 H 27 H Blood Pressure 159/77 H 109/55 L Pulse Oximetry 100 100 99 12/03/21 17:00 12/03/21 17:30 12/03/21 18:00 Temperature 97.7 F Pulse Rate 80 84 85 Respiratory Rate 20 20 20 Blood Pressure 171/94 H 167/105 H Pulse Oximetry 97 96 97 12/03/21 18:45 12/03/21 19:00 12/03/21 19:30 Temperature 97.7 F 97.7 F Pulse Rate 84 82 86 Respiratory Rate 20 18 20 Blood Pressure 180/78 H 187/107 H 187/107 H Pulse Oximetry 98 97 12/03/21 20:00 12/03/21 20:59 12/03/21 21:00 Temperature Pulse Rate 87 88 82 Respiratory Rate 20 21 H 17 Blood Pressure 190/67 H 104/43 L 106/47 L Pulse Oximetry 98 96 97 12/03/21 22:00 Temperature 97.1 F L Pulse Rate 86 Respiratory Rate 20 Blood Pressure 103/46 L Pulse Oximetry 99 H&P: Results Labs Labs: Short CBC 12/03/21 12/03/21 Range/Units 12:59 18:38 WBC 9.9 9.8 (4.5-10.0) K/mm3 Hgb 12.0 L 11.0 L (14.0-18.0) g/dL Hct 36.2 L 33.2 L (42.0-52.0) % Plt Count 211 177 (150-375) k/mm3 BMP 12/03/21 12:59 Sodium 136 L Potassium 4.1 Chloride 101 Carbon Dioxide 26 BUN 23 H Creatinine 1.60 H Glucose 136 H Calcium 8.9 Cardiac Enzymes 12/03/21 12/03/21 Range/Units 12:59 18:38 Troponin I 3.980 H* 4.280 H* (0.000-0.034) ng/mL Liver Function 12/03/21 Range/Units 12:59 Total Bilirubin 0.5 (0.2-1.3) mg/dL AST 41 (17-59) U/L ALT 28 (4-50) U/L Alkaline Phosphatase 67 (38-126) U/L Albumin 4.1 (3.5-5.1) g/dL Quality Supervising physician for this history and physical is Dr. Gautam Arguello.
[2021-12-03 23:06] LABS: Glucose Point of Care 100 mg/dl (65-105)
[2021-12-03 23:20] LABS: INR 0.9; Prothrombin Time 12.4 Seconds (11.1-14.7)
[2021-12-03 23:21] LABS: Partial Thromboplastin Time 33.2 SECONDS (22.3-36.8)
[2021-12-04] VITALS: BP 118/53; BP 126/51; PULSE 84; PULSE 85; PULSE 93; RESP 12; RESP 16; TEMP 36.6; O2SAT 96; O2SAT 97
[2021-12-04 01:00] VITALS: BP 105/61; PULSE 82; RESP 18; TEMP 36.8; O2SAT 97
== END 2021-12-04 01:15 | disposition short-term general hospital (02) | DRG 272 ==
LOC: ANHED 16:29 → ANHIMU 16:54 → ANHICU 20:43
PROVIDERS: Emergency Medicine; Specialist; Admitting Provider Internal Medicine; Emergency Provider Emergency Medicine; PCP Internal Medicine; Visit Provider Internal Medicine
PROC: 4A023N7 Measurement of Cardiac Sampling and Pressure, Left Heart, Percutaneous Approach (ICD-10-PCS; CPT 93452; principal; 2021-12-03 15:00)
PROC: 5A02210 Assistance with Cardiac Output using Balloon Pump, Continuous (ICD-10-PCS; 2021-12-03 15:00)
DX: I21.4 Non-ST elevation (NSTEMI) myocardial infarction (principal); Z20.822 Contact with and (suspected) exposure to COVID-19; I10 Essential (primary) hypertension; E11.9 Type 2 diabetes mellitus without complications; N28.9 Disorder of kidney and ureter, unspecified; D64.9 Anemia, unspecified; E78.5 Hyperlipidemia, unspecified; I25.10 Atherosclerotic heart disease of native coronary artery without angina pectoris; Z79.4 Long term (current) use of insulin; Z95.5 Presence of coronary angioplasty implant and graft
CPT/HCPCS: 33967; 36415; 71046; 80053; 82948; 83690; 84484; 85025; 85610; 85730; 93005; 93458; 96365; 99291; A9270; C1769; C1887; C1894; C8929; C9803; J1644; J2250; J2370; J3010; J7030; J7040; Q9957; U0003; U0005